=== PATIENT | female | born 1970 | race Hispanic/Latino ===

== ENCOUNTER 2020-09-22 02:27 | Emergency (ER) | payer BC, OTHER ==
[~2020-09-22] VITALS: Ht 167.6 cm; Wt 111.1 kg
[2020-09-22] MEDS ORDERED: LIDOCAINE HCL 1% LOCAL INJ 20 ML VIAL ONE (02:57)
[2020-09-22] MEDS ORDERED: LIDOCAINE HCL 1% LOCAL INJ 20 ML VIAL INJ ONE (03:00)
--- NOTE | 2020-09-22 03:09 | Emergency Department Note ---
History of Present Illnes History of Present Illness Chief Complaint: Laceration History of Present Illness This is a 50 year old female Chief Complaint Comment pt states she was bitten by her dog, to lower lip. bleeding controlled at this time. 1.5 cm lac noted. pt states dog is utd on all shots . Historian: Patient Arrival Mode: Car Onset (how long ago): hour(s) (2) Location: lower lip Quality: sharp Radiation: Denies non-radiation, Denies back, Denies neck, Denies extremity, Denies abdomen, Denies periumbilical, Denies flank, Denies proximal, Denies distal, Denies other Severity: mild Onset quality: sudden Duration (how long): hour(s) (2) Progression: unchanged Chronicity: new Context: Denies recent illness, Denies recent surgery, Denies recent immobilization, Denies recent travel, Denies trauma/injury, Denies new medications, Denies hx of DVT/PE, Denies non-compliance w/ medications, Denies other Relieving factors: none Exacerbating factors: none Associated symptoms: Denies denies other symptoms, Denies confusion, Denies chest pain, Denies cough, Denies diaphoresis, Denies fever/chills, Denies headaches, Denies loss of appetite, Denies malaise, Denies nausea/vomiting, Denies rash, Denies seizure, Denies shortness of breath, Denies syncope, Denies weakness, Denies other Treatments prior to arrival: none Past Medical/Family History Physician Review I have reviewed the patient's past medical and family history. Any updates have been documented here. Past Medical History Recent Fever: No Clinical Suspicion of Infectio: No New/Unexplained Change in Ment: No Past Medical History: Anxiety Past Surgical History: None Social History Smoking Cessation: Never Smoker Counseling Performed: No Alcohol Use: Occasional Any Illegal Drug Use: No Physically hurt or threatened: No Other Any Pre-Existing Lines (PICC,: No Review of Systems Review of Systems Constitutional: Reports no symptoms EENTM: Reports no symptoms Cardiovascular: Reports no symptoms Respiratory: Reports no symptoms Gastrointestinal: Reports no symptoms Genitourinary: Reports no symptoms Musculoskeletal: Reports as per HPI Integumentary: Reports no symptoms Neurological: Reports no symptoms Psychological: Reports no symptoms Endocrine: Reports no symptoms Hematological/Lymphatic: Reports no symptoms Physical Exam Related Data Allergies: Coded Allergies: No Known Drug Allergies (Verified Allergy, Mild, 07/15/10) Triage Vital Signs Vital Signs Date Time Temp Pulse Resp B/P (MAP) Pulse Ox O2 Delivery O2 Flow Rate FiO2 09/22/20 02:40 98.1 77 17 152/78 98 Room Air Vital signs reviewed: Yes Physical Exam CONSTITUTIONAL Constitutional: Present well-developed, Present well-nourished HENT HENT: Present normocephalic, Present oropharynx clear/moist, Present nose normal, Present other (2 cm lac) HENT L/R: Present left ext ear normal, Present right ext ear normal EYES Eyes: Reports PERRL, Reports conjunctivae normal; Denies EOM normal, Denies lids normal, Denies left eye discharge, Denies right eye discharge, Denies scleral icterus, Denies other NECK Neck: Present ROM normal; Absent supple, Absent thyromegaly, Absent tracheal deviation, Absent stridor, Absent JVD, Absent cervical adenopathy, Absent carotid bruit, Absent other PULMONARY Pulmonary: Present effort normal, Present breath sounds normal; Absent respiratory distress, Absent rales, Absent rhonchi, Absent chest tenderness, Absent other CARDIOVASCULAR Cardiovascular: Present regular rhythm, Present heart sounds normal, Present capillary refill normal, Present normal rate GASTROINTESTINAL Abdominal: Present soft, Present nontender, Present bowel sounds normal; Absent distension, Absent tender, Absent guarding, Absent mass, Absent rebound, Absent hernia, Absent left CVA tenderness, Absent right CVA tenderness, Absent other GENITOURINARY Genitourinary: Present exam deferred; Absent vagina normal, Absent uterus normal, Absent guaiac result, Absent vaginal discharge, Absent other SKIN Skin: Present warm, Present dry; Absent erythema, Absent pale, Absent rash, Absent jaundiced, Absent bruising, Absent lesion, Absent other MUSCULOSKELETAL Musculoskeletal: Present ROM normal; Absent edema, Absent deformity, Absent tenderness, Absent swelling, Absent other NEUROLOGICAL Neurological: Present alert, Present oriented x 3, Present no gross motor or s ensory deficits PSYCHOLOGICAL Psychological: Present mood/affect normal, Present judgement normal Procedures Laceration Laceration: Laceration 1 Site: lip Side: left Size (cm): 2 Description: linear Depth: simple, single layer Local anesthesia: lidocaine 1% Amount of anesthesia (mL): 6 Skin layer closed with: nylon Size (cm): 5-0 Number of sutures: 3 Assessment & Plan Medical Decision Making MDM laceration Reassessment Reassessment better Assessment & Plan Final Impression: (1) Acute pain due to trauma (2) Laceration of lower lip Depart Disposition: HOME, SELF-CARE Last Vital Signs Date Time Temp Pulse Resp B/P (MAP) Pulse Ox O2 Delivery O2 Flow Rate FiO2 09/22/20 02:40 98.1 77 17 152/78 98 Room Air Medications in the ED Lidocaine HCl 20 ml STK-MED ONCE .ROUTE ; Start 09/22/20 at 02:57; Stop 09/22/20 at 02:51; Status DC Lidocaine HCl ONCE ONCE INJ Last administered on 09/22/20at 03:02; Admin Dose 10 ML; Start 09/22/20 at 03:00; Stop 09/22/20 at 03:01 MAGUI GREER MD Sep 22, 2020 03:09
--- OUTSIDE RECORDS SUMMARY | 2020-09-22 03:17 | XMS REPORT | Continuity of Care Document ---
Author Author [facility] Organization [facility] Address [address] [place] [address] Phone Unavailable Care Team Providers Care Echocardiograph Technician Name Role Phone Mino Chen MD PCP Problems This patient has no known problems. Allergies, Adverse Reactions, Alerts This patient has no known allergies or adverse reactions. Social History Social Habit Start Date Stop Date Quantity Comments Source Sex Assigned At Zanderpratik winterviktor Santo Tobacco use and exposure 2018-09-25 00:00:00 2018-09-25 00:00:00 Az r used Jovanny Santo Alcohol intake 2018-09-25 00:00:00 2018-09-25 00:00:00 Current drinker of alcohol (finding) Jovanny Santo Smoking Status Start Date Stop Date Source Never smoker Jovanny sharma Medications Ordered Medication Name Filled Medication Name Start Date Stop Da te Current Medication? Ordering Clinician Indication Dosage Frequency Signature (SIG) Comments Components Source ciprofloxacin (CIPRO) 500 MG tablet 2018-09-11 00:00:00 Yes TK 1 T PO BID FOR 10 DAYS Jovanny Santo norethindrone-e.estradiol-iron (JUNE11/18) 1 mg-20 mcg (21)/75 mg (7) per tablet 2018-09-08 00:00:00 Yes Jovanny Santo Procedures This patient has no known procedures. Plan of Care Planned Activity Planned Date Details Comments Source Future Scheduled Test 2020-05-30 00:00:00 INFLUENZA VACCINE [code = INFLUENZA VACCINE] Jovanny Vegaist Future Scheduled Test 2019 00:00:00 BREAST CANCER SCRE ENING [code = BREAST CANCER SCREENING] Jovanny Vegaist Future Scheduled Test 2019 00:00:00 COLONOSCOPY SCREEN ING [code = COLONOSCOPY SCREENING] [facility] Future Scheduled Test 2019 00:00:00 SHINGLES VACCINES (#1) [code = SHINGLES VACCINES (#1)] Jovanny Santo Future Scheduled Test 1990 00:00:00 Screening for laura gnant neoplasm of cervix (procedure) [code = 432585045] Jovanny Vegais t Encounters Start Date/Time End Date/Time Encounter Type Admission Type [facility] Facility Care Department Encounter ID Source 2019-09-06 12:30:00 2019-09-06 12:30:00 Emergency E [facility] [id number] [facility] Results Test Description Test Time Test Comments Results Result Comments Source SCR MAMM BILATERAL KENNETH CAD DIGITAL 2020-08-26 09:17:09 Name: Delmy : 1970 Sex: F - SCR MAMM BILATERAL KENNETH CAD DIGITALBILATERAL DIGITAL SCREENING MAMMOGRAM 3D/2D WITH CAD: 08/25/2020CLINICAL: Asymptomatic. Digital breast tomosynthesis was performed in addition to routine CC and MLO views. Current mammographic images were evaluated by either a [employer] M-Vu or a Mobile [employer] CAD (computer aided detection system). Comparison is made to exam dated 02/23/2019 mammogram - [facility]. There are scattered fibroglandular tissues in both breasts. No suspicious mass, architectural distortion, malignant type calcification, or lymph node abnormality detected. Breast architecture is stable compared to prior exams.IMPRESSION: NEGATIVEThere is no mammographic evidence of malignancy. Resume annual screening mammography in one year. Kar Dangelo M.D. ss/penrad:08/26/2020 09:17:09 Heel Seat Fitter: Candice SALCEDO, [facility]-FWletter sent: BIRADS 1-2 Normal Mammogram BI-RADS: 1 Negative DIAG MAMM LEFT CAD DIGITAL 2019-05-16 16:42:56 - DIAG MAMM LEFT CAD DIGITALUNILATERAL LEFT DIGITAL DIAGNOSTIC MAMMOGRAM WITH CAD: 05/16/2019CLINICAL: Abnormal Mammogram. Current mammographic images were evaluated by either a [employer] M-Vu or a Mobile [employer] Image[employer]er CAD (computer aided detection system). Comparison is made to exam dated 02/23/2019 mammogram - [facility]. There are scattered fibroglandular tissues in the left breast. A mass is noted in the retroareolar region of the left breast.No architectural distortion, malignant type calcification, or lymph node abnormality detected. INCOMPLETE ASSESSMENT: ADDITIONAL IMAGING EVALUATION RECOMMENDEDA mass is noted in the retroareolar region of the left breast. Ultrasound will be performed later today for further evaluation.- BREAST ULTRASOUND LEFTULTRASOUND OF LEFT BREAST AND LEFT AXILLA: 05/16/2019Comparison is made to exam dated 02/23/2019 mammogram - [facility]. Real-time ultrasound of the left breast and axilla was performed. In the retroareolar left breast, there is a cyst measuring 13 x 7 x 12 mm. Posterior acoustic enhancement is identified. No associated abnormal vascularity is seen. The remainder of the left breast and left axillary ultrasound is unremarkable.IMPRESSION: NEGATIVE There is no sonographic evidence of malignancy. Left breast retroareolar cyst, as above.Resume annual screening mammography in one year. Lainey Ramesh M.D. ar/:05/16/2019 16:42:56 Entry: - 05/17/2019 12:09:10Imaging Technologist: Agustina SALCEDO, [facility]-FW[facility] sent: BIRADS 1-2 Combo FU Letter Mammogram BI-RADS: 0 Indeterminate Ultrasound BI-RADS: 1 Negative BREAST ULTRASOUND LEFT 2019-05-16 16:42:56 - DI AG MAMM LEFT CAD DIGITALUNILATERAL LEFT DIGITAL DIAGNOSTIC MAMMOGRAM WITH CAD: 05/16/2019CLINICAL: Abnormal Mammogram. Current mammographic images were evaluated by either a [employer] M-Vu or a Mobile [employer] Image[employer]er CAD (computer aided detection system). Comparison is made to exam dated 02/23/2019 mammogram - [facility]. There are scattered fibroglandular tissues in the left breast. A mass is noted in the retroareolar region of the left breast.No architectural distortion, malignant type calcification, or lymph node abnormality detected. INCOMPLETE ASSESSMENT: ADDITIONAL IMAGING EVALUATION RECOMMENDEDA mass is noted in the retroareolar region of the left breast. Ultrasound will be performed later today for further evaluation.- BREAST ULTRASOUND LEFTULTRASOUND OF LEFT BREAST AND LEFT AXILLA: 05/16/2019Comparison is made to exam dated 02/23/2019 mammogram - [facility]. Real-time ultrasound of the left breast and axilla was performed. In the retroareolar left breast, there is a cyst measuring 13 x 7 x 12 mm. Posterior acoustic enhancement is identified. No associated abnormal vascularity is seen. The remainder of the left breast and left axillary ultrasound is unremarkable.IMPRESSION: NEGATIVE There is no sonographic evidence of malignancy. Left breast retroareolar cyst, as above.Resume annual screening mammography in one year. Lainey Ramesh M.D. ar/:05/16/2019 16:42:56 Entry: - 05/17/2019 12:09:10Imaging Technologist: Agustina Lanza , [facility]-FW[facility] sent: BIRADS 1-2 Combo FU Letter Mammogram BI-RADS: 0 Indeterminate Ultrasound BI-RADS: 1 Negative
--- OUTSIDE RECORDS SUMMARY | 2020-09-22 03:17 | XMS REPORT | Clinical Summary ---
Author Author [facility] Organization [facility] Address Unknown Phone Unavailable Care Team Providers Care Print Line Tailer Name Role Phone Mino Chen MD PCP Allergies No Known Active Allergies Medications End Date Status Medication Sig Dispensed Refills Start Date Active ciprofloxacin (CIPRO) 500 TK 1 T PO BID 0 08/30 MG tablet FOR 10 DAYS 8 Active norethindrone-e.estradiol 0 -iron (11/18) 1 8 mg-20 mcg (21)/75 mg (7) per tablet Active Problems No known active problems Medical History Medical History Date Comments Bleeding from the nose Social History Date Tobacco Use Types Packs/Day Years Used Never Smoker Smokeless Tobacco: Never Used Drinks/Week oz/Week Comments Alcohol Use 1 Glasses of wine 1.0 Yes Sex Assigned at Date Recorded Not on file Last Filed Vital Signs Not on file Plan of Treatment Health Maintenance Due Date Last Done Comments CERVICAL CANCER SCREENING 1990 BREAST CANCER SCREENING 2019 COLONOSCOPY SCREENING 2019 SHINGLES VACCINES (#1) 2019 INFLUENZA VACCINE 05/30/2020 Results Not on fileafter 09/22/2019 Insurance Type Payer Benefit Subscriber ID Effective Phone Address Plan / Dates Group PPO BCBS BCBS [id number] 2018- CHOICE Present PPO/DIANE BENNETT PPO Advance Directives For more information, please contact: [phone] Patient Claims Configuration Analyst Explanation Type Date Recorded Advance Directives, Living Will and Medical Power of Passenger Tire Builder
--- NOTE | 2020-09-22 03:33 | NUR ---
[place] animal control notified of dog bit at [phone] message left.
--- NOTE | 2020-09-22 03:35 | NUR ---
additional discharge instructions on wound care given to patient with verbal understanding.
== END 2020-09-22 03:36 | disposition home or self-care (01) ==
LOC: FSED 03:14
DX: S01.511A Laceration without foreign body of lip, initial encounter (principal); W54.0XXA Bitten by dog, initial encounter; Y92.008 Other place in unspecified non-institutional (private) residence as the place of occurrence of the external cause; F41.9 Anxiety disorder, unspecified
CPT/HCPCS: 12011; 99283; J2001